=== PATIENT | male | born 1960 | race Caucasian/White ===

== ENCOUNTER → 2017-11-08 | Outpatient (CLI) | payer OTHER | END | disposition home or self-care (01) | LOC: CFH 15:38 | PROVIDERS: ATTEND Pediatrics | DX: K76.0 Fatty (change of) liver, not elsewhere classified (principal) | CPT/HCPCS: 76705 ==

== ENCOUNTER → 2018-12-18 | Outpatient (CLI) | payer OTHER | END | disposition home or self-care (01) | LOC: STAR 09:36 | PROVIDERS: ATTEND Neurological Surgery | DX: Z01.811 Encounter for preprocedural respiratory examination (principal); Z01.82 Encounter for allergy testing; Z01.810 Encounter for preprocedural cardiovascular examination; M48.061 Spinal stenosis, lumbar region without neurogenic claudication; R79.1 Abnormal coagulation profile | CPT/HCPCS: 71046; 93005 ==

== ENCOUNTER 2019-03-12 07:05 | Outpatient (CLI) | payer OTHER | END 2019-03-12 23:59 | disposition home or self-care (01) | LOC: CFH 07:05 | PROVIDERS: ATTEND Physician Assistant Surgical | DX: M47.817 Spondylosis without myelopathy or radiculopathy, lumbosacral region (principal); M48.07 Spinal stenosis, lumbosacral region | CPT/HCPCS: 72148 ==

== ENCOUNTER → 2019-09-19 | Outpatient (CLI) | payer OTHER ==
[~2019-09-19] MED LIST: OMNIPAQUE 350 MG/ML, 100ML BOTTLE ONE
== END | disposition home or self-care (01) ==
LOC: CFH 11:35
PROVIDERS: ATTEND Physician Assistant Surgical
DX: M47.26 Other spondylosis with radiculopathy, lumbar region (principal); M43.28 Fusion of spine, sacral and sacrococcygeal region; M25.751 Osteophyte, right hip; M25.452 Effusion, left hip; M25.451 Effusion, right hip; M46.1 Sacroiliitis, not elsewhere classified
CPT/HCPCS: 72193; 82565; Q9967

== ENCOUNTER → 2020-03-31 | Outpatient (CLI) | payer OTHER | END | disposition home or self-care (01) | LOC: STAR 10:40 | PROVIDERS: ATTEND Neurological Surgery | DX: Z01.818 Encounter for other preprocedural examination (principal); M41.86 Other forms of scoliosis, lumbar region; M47.26 Other spondylosis with radiculopathy, lumbar region; M48.061 Spinal stenosis, lumbar region without neurogenic claudication; R79.1 Abnormal coagulation profile; R94.31 Abnormal electrocardiogram [ECG] [EKG]; R82.90 Unspecified abnormal findings in urine | CPT/HCPCS: 71046; 72110; 93005 ==

== ENCOUNTER 2020-04-10 08:51 | Observation (INO) | payer OTHER ==
[~2020-04-10] VITALS: Ht 175.3 cm; Wt 111.8 kg
[2020-04-10] MEDS ORDERED: SODIUM CHLORIDE 0.9% 1,000ML IVBOLUS ONE (10:00)
[2020-04-10 10:05] LABS: BASOPHILS # (AUTO) 0.03 x10^3/uL (0-0.1); BASOPHILS % (AUTO) 0 % (0-1); EOSINOPHILS # (AUTO) 0.08 x10^3/uL (0-0.4); EOSINOPHILS % (AUTO) 1 % (1-7); LYMPHOCYTES # (AUTO) 2.52 x10^3/uL (1-3.4); LYMPHOCYTES % (AUTO) 31 % (22-44); MD NO; MEAN CORPUSCULAR HEMOGLOBIN 30.3 pg (27.5-34.5); MEAN CORPUSCULAR HGB CONC 32.6 g/dL (33.2-36.2); MEAN CORPUSCULAR VOLUME 92.7 fL (81-97); MEAN PLATELET VOLUME 7.5 fL (7.4-10.4); MONOCYTES # (AUTO) 0.59 x10^3/uL (0.2-0.8); MONOCYTES % (AUTO) 7 % (2-9); NEUTROPHILS # (AUTO) 4.83 x10^3/uL (1.8-6.8); NEUTROPHILS % (AUTO) 60 % (42-75); PLATELET COUNT 218 x10^3/uL (130-400); RED BLOOD COUNT 4.91 x10^6/uL (4.38-5.82)
[2020-04-10 10:15] LABS: ALANINE AMINOTRANSFERASE 48 U/L (12-78); ALBUMIN 3.9 g/dL (3.4-5.0); ANION GAP 4 mmol/L (5-15); CHLORIDE 108 mmol/L (98-107); CREATININE 1.02 mg/dL (0.7-1.3)
[2020-04-10 10:17] LABS: ALKALINE PHOSPHATASE 42 U/L (45-117); BILIRUBIN,TOTAL 0.5 mg/dL (0.2-1.0); TOTAL PROTEIN 7.7 g/dL (6.4-8.2)
--- NOTE | 2020-04-10 10:33 | NUR ---
REPORT RECEIVED FROM NETO DE LA ROSA. PT STATES HAD LOW BACK LAMINECTOMY YESTERDAY, STATES HAD SUDDEN ONSET OF DIZZINESSTHIS AM. PT DENIES AND LOC. CURRENTLY, PT DENIES ANY SOB OR CP, STATES FEELING "MOSTLY NORMAL" NOW. IV STARTED PER ORDERS, IVF HUNG. PT PLACED ON MONITORS, VSS. AT BEDSIDE. CONT TO MONITOR.
--- NOTE | 2020-04-10 10:53 | NUR ---
REPORT GIVEN TO KWAME DE LA ROSA.
--- NOTE | 2020-04-10 11:30 | NUR ---
MD AT BEDSIDE TO UPDATE PT ON POC.
--- NOTE | 2020-04-10 11:54 | NUR ---
PT GIVEN DC PAPERWORK, PIV PULLED WITH TIP INTACT. PT AMBULATED TO DC WITH STEADY GAIT. PT NUMBNESS IN HANDS STARTED AGAIN. PT WHEELED BACK TO ROOM. AT BEDSIDE FOR REASSESSMENT.
--- NOTE | 2020-04-10 12:00 | NUR ---
PT TO BE ADMIT. NEW PIV PLACED. PT RECONNECTED TO MONITORING.
--- NOTE | 2020-04-10 12:43 | NUR ---
DIET TRAY DELIVERED TO PT. HOSPITALIST AT BEDSIDE.
--- NOTE | 2020-04-10 13:06 | NUR ---
REPORT GIVEN TO WILBUR DE LA ROSA.
[2020-04-10 13:24] LABS: MICROSCOPIC NOT IND
[2020-04-10] MEDS ORDERED: ONDANSETRON 2MG/ML, 2ML IVPush PRN (13:30)
[2020-04-10] MEDS ORDERED: ONDANSETRON ODT 4 MG PO PRN (13:30)
[2020-04-10] MEDS ORDERED: METHOCARBAMOL 500 MG TABLET PO PRN (13:30)
[2020-04-10] MEDS ORDERED: ACETAMINOPHEN 325 MG TABLET PO PRN (13:30)
[2020-04-10] MEDS ORDERED: HYDROcodone/APAP 5/325 TABLET PO PRN (13:30)
[2020-04-10] MEDS ORDERED: GABAPENTIN 300 MG CAPSULE PO PRN (13:30)
[2020-04-10] MEDS ORDERED: POLYETHYLENE GLYCOL 17 GM PACKET PO PRN (13:30)
[2020-04-10] MEDS ORDERED: BISACODYL 10 MG SUPP PR PRN (13:30)
[2020-04-10] MEDS ORDERED: ENALAPRILAT 1.25 MG/ML, 2ML IVPush PRN (13:30)
[2020-04-10] MEDS: SODIUM CHLORIDE 0.9% 1,000 ML IV SCH (15:02)
[2020-04-10] MEDS ORDERED: CEPHALEXIN 500 MG CAPSULE PO SCH (16:00)
[2020-04-10 20:53] VITALS: BP 124/82
[2020-04-10] MEDS: SULFAMETH./TRIMETHOPRIM DS 800MG/160MG TABLET PO SCH (21:39)
[2020-04-11 01:03] VITALS: BP 132/92
[2020-04-11 01:22] VITALS: BP_SYST 121; BP_SYST 128; BP_SYST 138; BP_DIAS 80; BP_DIAS 95
[2020-04-11] MEDS ORDERED: LOSA100T14 PO (01:47)
[2020-04-11] MEDS: SODIUM CHLORIDE 0.9% 1,000 ML IV SCH (04:41)
[2020-04-11 05:34] LABS: BASOPHILS # (AUTO) 0.03 x10^3/uL (0-0.1); BASOPHILS % (AUTO) 0 % (0-1); EOSINOPHILS # (AUTO) 0.11 x10^3/uL (0-0.4); EOSINOPHILS % (AUTO) 2 % (1-7); LYMPHOCYTES # (AUTO) 2.69 x10^3/uL (1-3.4); LYMPHOCYTES % (AUTO) 39 % (22-44); MD NO; MEAN CORPUSCULAR HEMOGLOBIN 30.3 pg (27.5-34.5); MEAN CORPUSCULAR HGB CONC 32.9 g/dL (33.2-36.2); MEAN PLATELET VOLUME 7.9 fL (7.4-10.4); MONOCYTES # (AUTO) 0.63 x10^3/uL (0.2-0.8); MONOCYTES % (AUTO) 9 % (2-9); NEUTROPHILS % (AUTO) 50 % (42-75); PLATELET COUNT 205 x10^3/uL (130-400); RED BLOOD COUNT 4.66 x10^6/uL (4.38-5.82); RED CELL DISTRIBUTION WIDTH 12.9 % (9.4-14.8)
[2020-04-11 05:40] LABS: CHLORIDE 109 mmol/L (98-107)
[2020-04-11 06:03] LABS: ANION GAP 5 mmol/L (5-15); CALCIUM 9.1 mg/dL (8.5-10.1); CHOLESTEROL, TOTAL 177 mg/dL (140-239); CREATININE 1.02 mg/dL (0.7-1.3); HDL CHOL % 25 % (26-37); HDL CHOLESTEROL (DIRECT) 44 mg/dL (40-60); LDL CHOLESTEROL,CALCULATED 108 mg/dL (54-169); LDL/HDL RATIO 2.5 (0.5-3.0); TRIGLYCERIDES 127 mg/dL (50-200); VLDL CHOLESTEROL 25 mg/dL (0-25)
[2020-04-11 06:51] VITALS: BP 133/92
[2020-04-11] MEDS ORDERED: TRAM50TA2 PO (08:05)
[2020-04-11] MEDS: SULFAMETH./TRIMETHOPRIM DS 800MG/160MG TABLET PO SCH (09:00)
[2020-04-11] MEDS ORDERED: SENNA/DOCUSATE TABLET PO SCH (09:00)
[2020-04-11] MEDS ORDERED: LOSARTAN 100 MG TAB PO SCH (09:00)
[2020-04-11 09:46] VITALS: BP 122/89
== END 2020-04-11 10:20 | disposition home or self-care (01) ==
LOC: ED 10:09 → INTOOBSV 12:12 → 5SO 12:12 → DCLOUNGE 04-11 10:14
PROVIDERS: ADMIT Hospitalist; ATTEND Hospitalist
DX: R55 Syncope and collapse (principal); I10 Essential (primary) hypertension; E66.9 Obesity, unspecified; M48.061 Spinal stenosis, lumbar region without neurogenic claudication; Z79.899 Other long term (current) drug therapy
CPT/HCPCS: 36415; 71045; 80048; 80053; 80061; 81003; 82962; 83735; 84443; 85025; 93005; 96360; 96361; 97162; 97530; 97750; 99285; G0378; J7030

== ENCOUNTER → 2020-05-08 | Outpatient (CLI) | payer OTHER ==
[~2020-05-08] MED LIST changes: +LOSA100T14 PO; -OMNIPAQUE 350 MG/ML, 100ML BOTTLE ONE; +TRAM50TA2 PO
[2020-05-08 14:26] LABS: ALBUMIN 3.9 g/dL (3.4-5.0); ANION GAP 6 mmol/L (5-15); CALCIUM 8.9 mg/dL (8.5-10.1); CHLORIDE 110 mmol/L (98-107)
[2020-05-08 14:30] LABS: ALANINE AMINOTRANSFERASE 55 U/L (12-78); ALKALINE PHOSPHATASE 55 U/L (45-117); BILIRUBIN,TOTAL 0.7 mg/dL (0.2-1.0); CREATININE 1.07 mg/dL (0.7-1.3); TOTAL PROTEIN 7.8 g/dL (6.4-8.2)
== END | disposition home or self-care (01) ==
LOC: STAR 13:16
PROVIDERS: ATTEND Surgery
DX: Z01.812 Encounter for preprocedural laboratory examination (principal); Z20.828 Contact with and (suspected) exposure to other viral communicable diseases; D24.9 Benign neoplasm of unspecified breast
CPT/HCPCS: 36415; 80053; 87635

== ENCOUNTER 2020-05-12 05:49 | Day surgery (SDC) | payer OTHER ==
[~2020-05-12] VITALS: Ht 175.3 cm; Wt 110.0 kg
[2020-05-12] MEDS ORDERED: CHLORHEXIDINE 15 ML UDC MM STA (06:22)
[2020-05-12 06:24] VITALS: BP 137/87
[2020-05-12] MEDS ORDERED: LACTATED RINGERS 1,000 ML IV SCH (06:30)
[2020-05-12] MEDS ORDERED: EPINEPHRINE 1 MG/ML, 1ML ONE (06:59)
[2020-05-12] MEDS ORDERED: BUPIVACAINE/PF 0.5% ONE (06:59)
[2020-05-12] MEDS ORDERED: FENTANYL PF 250 MCG/5ML ONE (07:02)
[2020-05-12] MEDS ORDERED: BUPIVACAINE/PF-EPI 0.5% 1:200K INFIL ONE (07:28)
[2020-05-12] MEDS ORDERED: OXYcodone 5 MG/5 ML ORAL.SOL UDC PO PRN (07:30)
[2020-05-12] MEDS ORDERED: EPHEDRINE 50 MG/ML, 1ML IVPush PRN (07:30)
[2020-05-12] MEDS ORDERED: PROMETHAZINE 12.5 MG SUPP PR PRN (07:30)
[2020-05-12] MEDS ORDERED: ONDANSETRON 2MG/ML, 2ML IVPush PRN (07:30)
[2020-05-12] MEDS ORDERED: HYDROmorphone 1 MG/ML, 1ML INJ IVPush PRN (07:30)
[2020-05-12] MEDS ORDERED: LABETALOL 5MG/ML, 20ML IV PRN (07:30)
[2020-05-12] MEDS ORDERED: FENTANYL PF 100 MCG/2ML IV PRN (07:30)
[2020-05-12] MEDS ORDERED: ACETAMINOPHEN 325 MG TABLET PO PRN (07:30)
[2020-05-12] MEDS ORDERED: MEPERIDINE/PF 25MG/0.5ML IVPush PRN (07:30)
[2020-05-12] MEDS ORDERED: hydrALAzine 20 MG/ML, 1ML IV PRN (07:30)
[2020-05-12] MEDS ORDERED: CEFAZOLIN 1,000 MG ONE (16:50)
[2020-05-12] MEDS ORDERED: PROPOFOL 10 MG/ML, 20ML ONE (16:50)
[2020-05-12] MEDS ORDERED: ONDANSETRON 2MG/ML, 2ML ONE (16:50)
[2020-05-12] MEDS ORDERED: ESMOLOL 100 MG/10 ML ONE (16:50)
== END 2020-05-12 09:10 | disposition home or self-care (01) ==
LOC: OUT 05:49
PROVIDERS: ATTEND Surgery
DX: D48.1 Neoplasm of uncertain behavior of connective and other soft tissue (principal); I10 Essential (primary) hypertension; G89.4 Chronic pain syndrome; E66.09 Other obesity due to excess calories; Z68.34 Body mass index [BMI] 34.0-34.9, adult; Z79.899 Other long term (current) drug therapy; Z88.8 Allergy status to other drugs, medicaments and biological substances; Z90.49 Acquired absence of other specified parts of digestive tract; Z98.890 Other specified postprocedural states
CPT/HCPCS: 21931; 88305; J0171; J0690; J2405; J2704; J3010; J7120

== ENCOUNTER → 2020-07-08 | Outpatient (CLI) | payer OTHER | END | disposition home or self-care (01) | LOC: CFH 08:09 | PROVIDERS: ATTEND Physician Assistant Surgical | DX: M47.27 Other spondylosis with radiculopathy, lumbosacral region (principal); M51.15 Intervertebral disc disorders with radiculopathy, thoracolumbar region; M48.07 Spinal stenosis, lumbosacral region | CPT/HCPCS: 72131; 72148 ==